=== PATIENT | female | born 1965 | race Caucasian/White ===

== ENCOUNTER 2024-09-02 11:35 | Inpatient (IN) | payer SELFPAY ==
[2024-09-02] VITALS (9 sets, daily range): BP systolic 134–177; BP diastolic 66–102; BMI 38.2
--- NOTE | 2024-09-02 06:25 | ED.GENMED ---
History of Present Illness
General
Chief Complaint: Breathing Problem
Time Seen by Provider: 09/02/24 06:24
History of Present Illness
History of Present Illness:
TIME OF INITIAL ENCOUNTER: 6:20 AM
HPI: Patient presents with shortness of breath over the last couple of days. It worsened this morning. Last week she has 'a cold'. This is associated with some degree of bipedal edema. She denies fevers other than when she had the cold. She
stopped smoking about 2-1/2 years ago.
EXAM:
GENERAL: The patient appears tachypneic and in mild to moderate respiratory distress, room air sat was 87%
HEENT: Moist oral mucosa
CARDIOVASCULAR: No murmurs, normal heart rate, regular rhythm, No chest wall tenderness
PULMONARY: Mild to moderate respiratory distress, breath sounds are decreased with bilateral wheeze
ABDOMEN: Soft with no peritoneal signs, no tenderness
NEUROLOGIC: Excellent strength all extremities, no coordination deficits
PSYCHIATRIC: Appropriate mental status, normal insight and judgement
EXTREMITIES: Nontender, mild lower extremity edema, moves all extremities equally
SKIN: No rash, no lesions
NUMBER AND COMPLEXITY OF PROBLEMS ADDRESSED AT THE ENCOUNTER
� Chronic conditions affecting care: Denies any history of CHF or COPD
� Acute Exacerbation and/or Progression of Chronic Illness: This is an acute problem
� Differential Diagnosis includes: Undiagnosed COPD/emphysema, viral syndrome/reactive airway disease, CHF, given the abnormality heard on lung exam doubt PE
AMOUNT AND/OR COMPLEXITY OF DATA TO BE REVIEWED AND ANALYZED
� I performed an independent evaluation of and my interpretation is:
EKG:
CT:
X-rays: Chest x-ray shows mild hyperaeration with flattening of the right hemidiaphragm
Laboratory Studies: CBC unremarkable however MCV is over 100, mild hyperglycemia noted however chemistries unremarkable, troponin and BNP unremarkable
Other:
� Review of other/old records: No old records available for review in [facility]
� Clinical information was obtained by an independent historian: I spoke to family at bedside
� Prescriptions/Medications Considered but not given:
� Further testing considered but not performed:
RISK OF COMPLICATIONS AND/OR MORBIDITY OR MORTALITY OF PATIENT MANAGEMENT
� Social determinants of health affecting care: Lives at home
� Discussion with other providers: Hospitalist for admission
� Escalation of care including admission/observation vs risk of discharge considered: Upon arrival, the patient appears to be in moderate respiratory distress and had conversational dyspnea. I have given patient IV steroids and
DuoNebs.
ANY OTHER UPDATES:
On reassessment prior to admission, patient overall feels improved after DuoNebs and steroids have been started
Phy Exam
Physical Exam
Physical Exam:
See HPI
Scores
Heart Failure Risk
Heart Failure Risk Score: Not Applicable
Course
Orders/Labs/Results
Orders:
Orders
09/02/24 06:24
Ipratropium/Albuterol Sulfate [Duoneb] 3 ml INH R NOW ONE
09/02/24 06:25
Ipratropium/Albuterol Sulfate [Duoneb] 3 ml INH R NOW STA
MethylPREDNISolone PF [Solu-Medrol Pf] 125 mg IV NOW STA
09/02/24 06:27
CR Chest Portable - 1 View Urgent
Comment:
Reason For Exam: sob wheeze
Reason Study Needs to be Portable: Patient Unstable
09/02/24 06:28
Complete Blood Count/With Diff Urgent
Comprehensive Metabolic Panel Urgent
Magnesium Urgent
NT-proBNP Urgent
Troponin I Urgent
09/02/24 07:00
COVID-19 Antigen Urgent
Source: Nasal Swab
Influenza A+B Rapid Molecular Urgent
JODY Source: Nasal Swab
Specimen Description:
09/02/24 Lunch
Regular
At Your Request: Full Participation
09/02/24 10:28
Admit/Transfer Patient As Directed
Co-Sign Provider:
Level of Care: Inpatient admission
Assign to:: Medical/Surgical
Physician / Group: Sandhya Wallace - hospitalists
Diagnosis: acute COPD, wheezing, hypoxia
Reason for Hospitalization: acute COPD, wheezing, hypoxia - IV steroids
Expected length of stay greater than two midnights?: Yes
ELOS- Estimated Length of Stay in days: 3
I certify the patient meets the requirements for IP care: Yes
PRN Pain Medication Management As Directed
May give lesser potent ordered pain med per pt: Yes
preference::
Protocol:: Medication orders for pain may be administered in a
manner that supports deferring to patient preference
when the pt is:
- Requesting an ordered lesser potent pain medication.
Least to most potent pain medications are defined
as: acetaminophen < NSAID < tramadol < opioids
(morphine, oxycodone, hydromorphone).
- Requesting a lesser dose of the same medication IF
ORDERED.
- Requesting a less intrusive route of administration
if both routes are prescribed by the provider (PO <
IV).
09/02/24 10:29
Code Status As Directed
Resuscitation Status: Full Code
09/02/24 10:30
PULMONARY CONSULT Routine
Consulting Provider: Tae Brantley
Was physician already notified: Yes
09/02/24 10:33
Acapella [Rx Pep / Acapela] [RESP] Routine
Rx Incentive Spirometry [RESP] Routine
Frequency: q1h while awake
09/02/24 12:00
Ipratropium/Albuterol Sulfate [Duoneb] 3 ml INH R QID
09/02/24 13:20
Acetaminophen [Tylenol] 650 mg PO Q4HPRN PRN
Bisacodyl [Dulcolax] 10 mg RECTAL [id number] PRN
Docusate W/Senna [Senokot-S] 1 tablet PO BIDPRN PRN
Ipratropium/Albuterol Sulfate [Duoneb] 3 ml INH R Q4HPRN PRN
Ondansetron Injectable [Zofran] 4 mg IV Q6HPRN PRN
Polyethylene Glycol Powder [Miralax] 17 grams PO DAILYPRN PRN
09/02/24 13:20
Activity As Directed
Activity Level: As Tolerated
Vital Signs As Directed
Frequency: Per unit guidelines
DX Deep Vein Thrombosis Video Routine
09/02/24 18:00
Enoxaparin Sodium [Lovenox] 40 mg SC QPM
09/03/24 06:00
Basic Metabolic Panel IN AM
Complete Blood Count/No Diff IN AM
Abnormal Lab Results
09/02/24
06:28
MCV 100.7 H fL
(81.0-99.0)
MCH 33.9 H pg
(27.0-31.0)
MPV 12.4 H fL
(7.4-10.4)
Absolute Eos (auto) 1.2 H 10^3/uL
(0-0.7)
Eosinophils % 17.0 H %
(0-6)
Glucose 152 H mg/dl
(70-99)
ALT 41 H U/L
(0-35)
09/02/24 06:28
09/02/24 06:28
Vital Signs
Initial and Last Documented VS:
Initial Vital Signs
Pulse Resp Pulse Ox
82 24 87
09/02/24 06:21 09/02/24 06:21 09/02/24 06:21
Last Documented Vital Signs
Pulse Resp BP Pulse Ox
92 28 147/71 93
09/02/24 11:51 09/02/24 11:51 09/02/24 11:51 09/02/24 12:10
*Critical Care Note
Total Time (30-74mins, 75-104mins- exclusive of procedures): Not Applicable
ED Attending Note
-
Portions of this chart may have been created with voice recognition software.� Occasional wrong word or��sound alike� substitutions may have occurred due to the inherent limitations of voice recognition software.
Discharge Plan
Departure
Patient Disposition: Admit
Date of Disposition: 09/02/24
Time of Disposition: 08:27
Presentation/result/management discussed w/ accepting MD/DO: Hospitalist
Discharge Problem:
RAD (reactive airway disease) with wheezing
Interventions
Interventions:
*Risk Screen - Suicide Last Done: 09/02/24 06:21
*General Assessment Last Done: 09/02/24 06:41
*Neglect/Abuse Screening Last Done: 09/02/24 06:21
ED- Fall Risk Assessment Last Done: 09/02/24 08:03
*ED COVID-19 Vaccine History Last Done: 09/02/24 06:41
*Nursing Disposition Last Done: 09/02/24 12:41
ED- Cardiac Assessment Last Done: 09/02/24 07:09
ED- Pulmonary Assessment Last Done: 09/02/24 07:09
Discharge Date and Time
Discharge Date/Time: 09/02/24 12:50
[2024-09-02] MEDS: DUONEB 3 ML INH ×5 (06:29→21:01)
[2024-09-02] MEDS: SOLU-MEDROL PF 125 MG IV (06:30)
[2024-09-02 06:47] LABS: % Basophils 0.9 % (0-2); % Immature Granulocytes 0.3 % (0-0.5); % Lymphocytes 26.6 % (20.5-51.1); % Monocytes 8.4 % (1.7-9.3); % Neutrophils 46.8 % (42.2-75.2); Absolute Basophils 0.1 10^3/uL (0-0.2); Absolute Eosinophils 1.2 10^3/uL (0-0.7); Absolute Lymphocytes 1.8 10^3/uL (1.2-3.4); Absolute Monocytes 0.6 10^3/uL (0.1-0.6); Absolute Neutrophils 3.2 10^3/uL (1.4-6.5); Hematocrit 42.8 % (37.0-47.0); Hemoglobin 14.4 g/dL (12.0-16.0); Mean Corp Hgb Conc. 33.6 g/dL (33.0-37.0); Mean Corpuscular Hgb 33.9 pg (27.0-31.0); Mean Corpuscular Volume 100.7 fL (81.0-99.0); Mean Platelet Volume 12.4 fL (7.4-10.4); Nucleated Red Blood Cells % 0 %; Platelet Count 262 10^3/uL (130-400); Red Blood Cell Count 4.25 10^6/uL (4.20-5.40); Red Cell Dist. Width 11.5 % (11.5-14.5); White Blood Cell Count 6.9 10^3/uL (4.8-10.8)
[2024-09-02 07:01] LABS: ALT (SGPT) 41 U/L (0-35); AST (SGOT) 31 U/L (14-36); Albumin 4.5 g/dl (3.5-5.0); Alkaline Phosphatase 88 U/L (38-126); Blood Urea Nitrogen 12 mg/dl (7-17); Calcium 9.1 mg/dl (8.4-10.2); Carbon Dioxide 28 mmol/L (22-30); Chloride 104 mmol/L (98-107); Estimated Creatinine Clearance 88 ml/min; Glucose 152 mg/dl (70-99); Magnesium 1.8 mg/dl (1.6-2.3); Potassium 4.2 mmol/L (3.5-5.1); Sodium 141 mmol/L (135-145); Total Bilirubin 0.3 mg/dl (0.2-1.3); Total Protein 7.4 g/dl (6.3-8.2); eGFR > 60.00
[2024-09-02 07:10] LABS: NT-proBNP 44.7 pg/ml; Troponin I < 0.012 ng/ml
[2024-09-02 07:32] LABS: COVID-19 Antigen Negative (Negative)
--- NOTE | 2024-09-02 10:20 | HPS.HSE ---
Family Physician
-
Family Physician: * NONE
Chief Complaint
-
SOB/RUSHING
History of Present Illness
59 y/o F, former smoker (1/2 ppd, x 30 years, quit 2.5 years ago), presenting to ER for SOB and RUSHING. Patient reports a viral illness 1 week ago with a fever for 24 hours. Fever came upon on Monday of last week and by Monday, she was feeling
better. She was in her usual state of health until yesterday she felt SOB with light activity such as walking the dog. She took the rest of the day lightly and rested. This morning, she felt a bit lightheaded when waking up but otherwise felt ok.
upon heading to bathroom, she felt significantly SOB with wheezing sensation, prompting ER evaluation. She denies any fever/chills currently, no chest pain, no GI complaints. [place] some bilateral ankle swelling which she attributes to being on her
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 No sick contacts or travel. Recently moved to [place] from [place].
in ER, was placed on 3L NC and given nebs/IV steroids. Patient admitted for further evaluation/treatment.
Medical History
Past Medical History
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
Past Surgical History: Reports Cholecystectomy and Other (hernia repair)
Social History
Tobacco: Former Smoker
Alcohol: Occasional
Drug: Marijuana (oral edibles)
Personal: Single
Living: With Family
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
Family History
Family History: Not pertinent
Allergies / Home Medications
Allergies reflects when Allergies were last updated in [facility].
Home Medications with original date entered in [facility]
Allergy/Medication List:
Allergies
Allergy/AdvReac Type Severity Reaction Status Date / Time
No Known Allergies Allergy Verified 09/02/24 06:25
Home Medications
Sertraline 1.5 tab PO HSPRN PRN SLEEP 09/02/24
Review of Systems
-
A 12 point ROS was completed and negative except as noted: Yes
Respiratory: Reports See HPI
Cardiac: Reports No Symptoms
Abdomen/GI: Reports No Symptoms
: Reports No Symptoms
Musculoskeletal: Reports No Symptoms
Skin: Reports No Symptoms
Neurological: Reports No Symptoms
Endocrine: Reports No Symptoms
Physical Exam
Vital Signs
Vital Signs
Pulse Resp BP Pulse Ox
77 20 149/102 93
09/02/24 09:45 09/02/24 09:45 09/02/24 09:00 09/02/24 09:45
Physical Exam
General: Respiratory Distress and Obese
HEENT: NormoCephalic and Anicteric
Respiratory: Wheezes and Decreased Breath Sounds
Cardiac: S1/S2 and Regular Rhythm
GI: Soft and Non Tender
Musculoskeletal: No Edema
Neuro: AO x 3
Psych: Calm
Laboratory Results
-
09/02/24 06:28
09/02/24 06:28
Laboratory Results
Total Bilirubin 0.3 mg/dl (0.2-1.3) 09/02/24 06:28
AST 31 U/L (14-36) 09/02/24 06:28
ALT 41 U/L (0-35) H 09/02/24 06:28
Alkaline Phosphatase 88 U/L (38-126) 09/02/24 06:28
Troponin I < 0.012 ng/ml 09/02/24 06:28
Data Reviewed
-
Diagnostic Radiology: Image Personally Visualized and interpreted (hyperaerated lung drew, c/w COPD. no focal consolidations or effusions)
Lab Data: Labs Reviewed by me
Impression/Plan
-
Assessment:
Acute SOB/Wheezing, most likely undiagnosed emphysema/COPD with exacerbation vs reactive airway disease from recent viral illness
Acute hypoxic respiratory insufficiency on 3L NC
- CXR: hyperaeration of lung drew, flattened diaphragms, no consolidation/effusions. c/w COPD.
- admit M/S floor
- QID and prn Nebs
- IV steroids started
- wean O2 as able
- IS/Acapella
- if febrile, check sputum and consider empiric Abx. COVID/Flu negative
- Pulm consult with also plan for OP F/u with pulm for chronic management/PFTs
Former smoker
- 1/2 ppd x 30 years
- quit 2.5 years ago
DVT ppx: Lovenox
Code: Full
--- NOTE | 2024-09-02 10:39 | CON.PUL ---
Consultation
Consultation Request
Date/Time Consultation Requested: 09/02/2024-10 40 5 AM
Date/Time Consultation Performed: 09/02/2024-11 AM
Requesting Provider: Hospitalist
Performing Provider: Dr. Brantley
Reason for Consultation: Shortness of breath
Medical History
-
Chief Complaint: Shortness of breath
History of Present Illness:
59-year-old female recently moved to [place] from [place] with a 89-05-mynu-year smoking history quit 2.5 years ago presented with increasing shortness of breath triggered by recent viral illness placed on supplemental oxygen and pulmonary consulted for
shortness of breath 09/02/2024.. She recently moved from [place]. She does not have a local manager patient. She quit smoking almost 3 years ago. She's never been told she had emphysema or asthma. She does have a history of COPD in the family.
She does not use inhalers. An outpatient. She does not see a manager patient. She developed increasing shortness of breath, wheezing, chest congestion, nonproductive cough, dyspnea on exertion and offered no complaints of chest pain, pleurisy,
abdominal pain, nausea, increased leg swelling or weakness.
Past Medical History
Past Medical History: None (TB age 13. Former smoker-less than 61-[id number]-zkcg quit 2020. Cholecystectomy. Hernia repair. GREGORY suspected.)
Social History
Tobacco: Former Smoker (28-43-wman-year quit 2.5 years ago)
Alcohol: Occasional
Drug: Marijuana (Edibles)
Personal: Single
Occupational Exposures: No known asbestos exposure
Environmental Exposures: No known tuberculosis exposure
Family History
Family History: Reviewed & Not Pertinent and Other (. Daughter-narcolepsy. Brother-COPD. Multiple family members-GREGORY.)
Allergies / Home Medications
Allergies
Allergy/AdvReac Type Severity Reaction Status Date / Time
No Known Allergies Allergy Verified 09/02/24 06:25
Home Medications
�Medication �Instructions �Recorded �Confirmed �Last Taken �Type
Sertraline 1.5 tab PO HSPRN PRN SLEEP 09/02/24 09/02/24 08/31/24 History
Review of Systems
-
Unable to Obtain full review of systems at this time due to: Other (Per HPI)
Vitals / Labs / Diagnostic Testing
Vital Signs
Pulse Resp BP Pulse Ox
77 20 149/102 93
09/02/24 09:45 09/02/24 09:45 09/02/24 09:00 09/02/24 09:45
Lab Data
09/02/24 06:28
09/02/24 06:28
Microbiology
09/02/24 07:00 Nasal Swab Influenza Types A & B (SALAZAR) - Final
Negative for Influenza A & B, NAAT
Negative results must be combined with clinical observations
and patient history.
Nucleic Acid Amplification test (NAAT)performed on the
[employer] platform.
Diagnostic Testing:
Physical Exam
-
Exam:
Well-nourished and well-developed in no apparent distress
HEENT-atraumatic, normocephalic
Neck-supple, no JVD, no bruit
Heart-regular rate and rhythm-no murmurs, rubs or gallops
Chest with diminished breath sounds, prolonged expiratory time, expiratory wheezes
Back without tenderness
Abdomen-soft, nontender, nondistended, no hepatosplenomegaly
Extremities-no cyanosis, clubbing, edema and good peripheral pulses
Integument-intact, no rashes, lesions or ecchymosis
Neurology-alert and oriented, nonfocal motor and sensory exam
Assessment
-
59-year-old female recently moved to [place] from [place] with a 89-94-sqhr-year smoking history quit 2.5 years ago presented with increasing shortness of breath triggered by recent viral illness placed on supplemental oxygen and pulmonary consulted for
shortness of breath 09/02/2024.
Suspected COPD with acute exacerbation
Recent URI/viral illness
Former smoker
Hyperglycemia
Conditions present prior to admission:
TB age 13.
Obstructive sleep apnea strongly suspected
Former smoker-less than [id number] quit 2020
Family history COPD-brother.
Family history of obstructive sleep apnea-multiple family members.
Family history narcolepsy-daughter
Cholecystectomy.
Hernia repair.
Plan
Patient requires admission for COPD exacerbation and respiratory failure
Supplemental oxygen as needed-Assess discharge supplemental oxygen needs
Consider ABG if declines
BiPAP if needed
Duonebs
Pulmicort nebulizers
Mucolytic's
Decadron or methylprednisolone
Incentive spirometry
Acapella
Consider vest if difficulties mobilizing secretions
Consider chest physiotherapy if difficulties mobilizing secretions
Check cultures
Empiric antibiotics if acute bacterial bronchitis or acute bacterial lower respiratory tree infection is suspected
Consider Procalcitonin level if unsure whether acute respiratory tract bacterial infection exists-caveat may be negative with atypical infections
Monitor blood sugars bit elevated on steroids
Insulin supplementation as needed
Smoking cessation counseling ongoing-Quit 3 years ago
DVT prophylaxis recommended
GI prophylaxis recommended if on steroids for prolonged period
Early nutrition
Early mobilization
Reviewed with ED nursing, respiratory therapy, and primary team , as well as family member at the bedside
Outpatient pulmonary/Sleep disorders [id number], 6-minute walk test, etc.-also needs polysomnogram and treatment for undoubted GREGORY yet to be diagnosed
Diagnostic data:
Chest x-ray 09/02/2024-no pneumonia, CHF or pleural effusion
Data Reviewed
-
EKG: Report reviewed by me
Radiology: Image personally visualized and interpreted and Report reviewed by me
Medical Tests (Nuc Med, Echo etc): Report reviewed by me
Labs: Labs reviewed by me
Old Records: Reviewed
Total Time Spent with Patient (in minutes): 55
--- NOTE | 2024-09-02 14:26 | PTCARENOTE ---
pt admitted to [facility] from ED AOx3, denies pain but endorses anxiety and feeling jittery. education provided surrounding steroid SE and breathing treatments. Pt on 4L via NC inspiratory and expiratory wheeze noted. tachypneic and RUSHING. abd round and
obese, +BSx4 NT. cont b&b. skin CDI trace b/l pedal edema. CB in reach
[2024-09-02] MEDS: SOLU-MEDROL PF 40 MG IV ×2 (14:37→20:27)
[2024-09-02] MEDS: LOVENOX 40 MG SC (18:02)
--- NOTE | 2024-09-02 18:18 | PTCARENOTE ---
pt c/o anxiety, attending contacted, PRN obtained
[2024-09-02] MEDS: ATIVAN 0.5 MG PO (18:33)
[2024-09-02] MEDS: MUCINEX 1200 MG PO (20:27)
[2024-09-03] MEDS: SOLU-MEDROL PF 40 MG IV ×4 (01:22→18:14)
[2024-09-03 05:39] LABS: Hematocrit 38.8 % (37.0-47.0); Hemoglobin 13.1 g/dL (12.0-16.0); Mean Corp Hgb Conc. 33.8 g/dL (33.0-37.0); Mean Corpuscular Hgb 33.9 pg (27.0-31.0); Mean Corpuscular Volume 100.3 fL (81.0-99.0); Mean Platelet Volume 12.9 fL (7.4-10.4); Platelet Count 227 10^3/uL (130-400); Red Blood Cell Count 3.87 10^6/uL (4.20-5.40); Red Cell Dist. Width 11.5 % (11.5-14.5); White Blood Cell Count 13.3 10^3/uL (4.8-10.8)
[2024-09-03 06:01] LABS: Blood Urea Nitrogen 15 mg/dl (7-17); Calcium 9.4 mg/dl (8.4-10.2); Carbon Dioxide 24 mmol/L (22-30); Chloride 102 mmol/L (98-107); Estimated Creatinine Clearance 88 ml/min; Glucose 287 mg/dl (70-99); Potassium 4.4 mmol/L (3.5-5.1); Sodium 137 mmol/L (135-145); eGFR > 60.00
[2024-09-03 07:00] VITALS: BP 124/68
[2024-09-03] MEDS: MUCINEX 1200 MG PO ×2 (08:05→20:01)
[2024-09-03] MEDS: NOVOLOG FLEXPEN-LOW RESISTANCE 2 UNITS SC ×2 (08:21→18:13)
--- NOTE | 2024-09-03 08:23 | W.PN.HOSP.TC ---
Today's Communication/Plan
-
continue current plan of care
home O2 evaluation
Assessment / Plan
Assessment / Plan
Assessment:
Acute SOB/Wheezing, most likely undiagnosed emphysema/COPD with exacerbation vs reactive airway disease from recent viral illness
Acute hypoxic respiratory insufficiency on 3L NC
- CXR: hyperaeration of lung drew, flattened diaphragms, no consolidation/effusions. c/w COPD.
- QID and prn Nebs
- Pulmicort nebs BID
- continue IV solu-Medrol 40mg q6h
- wean O2 as able; on RA currently. Home O2 eval in 24 hours
- IS/Acapella
- if febrile, check sputum and consider empiric Abx. COVID/Flu negative
- Pulm consult with also plan for OP F/u with pulm for chronic management/PFTs
Former smoker
- 1/2 ppd x 30 years
- quit 2.5 years ago
TB age 13
GREGORY suspected - OP sleep study
DVT ppx: Lovenox
Code: Full
Anticipated Discharge: Within 24 hours
Subjective/Interval History
-
Date of Service: September 03, 2024
reports less SOB, less wheezing
ambulated to bathroom, O2 to 90s, recovered to 95% with rest
Objective Data
-
Labs:
Laboratory Results
09/03/24
04:56
WBC 13.3 H
Hgb 13.1
Hct 38.8
Plt Count 227
Sodium 137
Potassium 4.4
Chloride 102
Carbon Dioxide 24
BUN 15
Creatinine 0.8
Glucose 287 H
Calcium 9.4
Vital Signs:
Vital Signs
Temp Pulse Resp BP Pulse Ox
97.9 F 64 18 124/68 94
09/03/24 07:00 09/03/24 07:00 09/03/24 07:00 09/03/24 07:00 09/03/24 08:12
I&O
09/02/24 09/03/24 09/04/24
06:59 06:59 06:59
Intake Total 480 / 480
Balance 480 / 480
Physical Exam
-
General: No Apparent Distress
HEENT: Normocephalic and Atraumatic
Respiratory: Wheezes and Decreased Breath Sounds
Cardiac: Regular Rhythm and S1/S2
GI: Soft and Nontender
Genito-urinary: No Costovertebral Tender
Neuro: AO x 3
Hematologic / Lymphatic: No Lymphadenopathy
Psych: Calm
Data Reviewed
-
Total Time Spent with Patient (in minutes): 44
Labs: Labs Reviewed by me
[2024-09-03 08:39] LABS: Glucose - Point of Care 212 mg/dl (70-99)
[2024-09-03] MEDS: PULMICORT 0.5 MG INH ×2 (08:43→19:35)
[2024-09-03] MEDS: DUONEB 3 ML INH ×4 (08:43→19:35)
--- NOTE | 2024-09-03 09:49 | W.PN.PUL.V3 ---
Today's Communication / Plan
-
Wean oxygen
Increase activity
No change in steroids-hopefully change to prednisone 60 mg with slow taper tomorrow
Continue nebulizers
Outpatient pulmonary/sleep disordered breathing follow-up
Assessment
-
59-year-old female recently moved to [place] from [place] with a 11-94-tnlk-year smoking history quit 2.5 years ago presented with increasing shortness of breath triggered by recent viral illness placed on supplemental oxygen and pulmonary consulted for
shortness of breath 09/02/2024.
Suspected COPD with acute exacerbation
Recent URI/viral illness
Former smoker
Hyperglycemia
Conditions present prior to admission:
TB age 13.
Obstructive sleep apnea strongly suspected
Former smoker-less than [id number] quit 2020
Family history COPD-brother.
Family history of obstructive sleep apnea-multiple family members.
Family history narcolepsy-daughter
Cholecystectomy.
Hernia repair.
Plan
Patient requires admission for COPD exacerbation and respiratory failure
Supplemental oxygen as needed-Assess discharge supplemental oxygen needs
Consider ABG if declines
BiPAP if needed-has not needed
Duonebs
Pulmicort nebulizers
Mucolytic's
Methylprednisolone 40 mg IV every 6 hours-likely can convert to prednisone 60 mg tomorrow with slow taper
Incentive spirometry
Acapella
Cultures reviewed
Unable to produce sputum
Influenza negative
Low threshold for empiric antibiotics if acute bacterial bronchitis or acute bacterial lower respiratory tree infection is suspected
Afebrile and mild leukocytosis probably steroid related
Consider Procalcitonin level if unsure whether acute respiratory tract bacterial infection exists-caveat may be negative with atypical infections
Monitor blood sugars bit elevated on steroids
Insulin supplementation as needed
Smoking cessation counseling ongoing-Quit 3 years ago
DVT prophylaxis recommended
GI prophylaxis recommended if on steroids for prolonged period
Early nutrition
Early mobilization
Reviewed with ED nursing, respiratory therapy, and primary team , as well as family member at the bedside
Outpatient pulmonary/Sleep disorders [id number], 6-minute walk test, etc.-also needs polysomnogram and treatment for undoubted GREGORY yet to be diagnosed
Diagnostic data:
Chest x-ray 09/02/2024-no pneumonia, CHF or pleural effusion
Subjective Data
-
Date of Service:
Date of Service: September 03, 2024
Chief Complaint: Pulmonary Follow Up and Dyspnea Follow Up
Subjective:
Feels a little better, still with some wheezing, no chest pain, chest congestion, productive cough or abdominal pain
Review of Systems
General: Other (Per HPI)
Objective Data
Data Reviewed
Vital Signs / I&O:
Vital Signs
Temp Pulse Resp BP Pulse Ox
97.9 F 81 19 124/68 95
09/03/24 07:00 09/03/24 08:47 09/03/24 08:47 09/03/24 07:00 09/03/24 08:47
Intake and Output
09/02/24 09/03/24 09/04/24
06:59 06:59 06:59
Intake Total 480 / 480
Balance 480 / 480
SaO2: 95
Nasal Cannula flow liters per minute: 4
Physical Exam
General: Respiratory Distress (n) and Comfortable
HEENT: Normocephalic, Anicteric and Moist Mucous Membranes
Cardiovascular: Regular Rhythm
Respiratory: Clear (Diminished breath sounds and prolonged expiratory time), Wheeze (Expiratory), Crackles (n), Rhonchi (n), Non-Labored Respirations, Accessory Resp Muscle Use (n) and Stridor (n)
GI: Soft, Non Distended and Non Tender
Neurology: Awake and No Motor Deficits
Skin: Warm, Good Color, Cyanosis (n), Jaundice (n) and Rash (n)
Labs/Micro/Reports
Lab Data
09/03/24 04:56
09/03/24 04:56
Microbiology
09/02/24 07:00 Nasal Swab Influenza Types A & B (SALAZAR) - Final
Negative for Influenza A & B, NAAT
Negative results must be combined with clinical observations
and patient history.
Nucleic Acid Amplification test (NAAT)performed on the
[employer] platform.
--- NOTE | 2024-09-03 11:38 | CM ---
Patient seen bedside.
Patient new to the area since June.
Patient independent prior to admission without assistive devices.
Patient is .
Patient drives, still works. Insurance will go into effect in October.
Patient Lives alone in a 1 story apartment with 1 step to enter.
PCP information and Advanced directives provided.
Patient does not have a nebulizer and aware one can be purchased if needed from [facility]
Patient prefers [facility] in [place].
Plan: home with possible oxygen and nebulizer needs.
family will transport.
[2024-09-03 12:57] LABS: Glucose - Point of Care 284 mg/dl (70-99)
[2024-09-03] MEDS: NOVOLOG FLEXPEN-LOW RESISTANCE 3 UNITS SC (13:00)
[2024-09-03 15:00] VITALS: BP 155/65
[2024-09-03] MEDS: TYLENOL 650 MG PO (16:12)
[2024-09-03 17:51] LABS: Glucose - Point of Care 206 mg/dl (70-99)
[2024-09-03] MEDS: LOVENOX 40 MG SC (18:12)
[2024-09-03] MEDS: ATIVAN 0.5 MG PO (20:04)
[2024-09-03 21:55] LABS: Glucose - Point of Care 313 mg/dl (70-99)
[2024-09-03 23:09] VITALS: BP 123/75
[2024-09-04] MEDS: SOLU-MEDROL PF 40 MG IV ×2 (01:07→06:14)
[2024-09-04 06:45] LABS: Hematocrit 39.3 % (37.0-47.0); Hemoglobin 13.2 g/dL (12.0-16.0); Mean Corp Hgb Conc. 33.6 g/dL (33.0-37.0); Mean Corpuscular Hgb 33.7 pg (27.0-31.0); Mean Corpuscular Volume 100.3 fL (81.0-99.0); Mean Platelet Volume 12.8 fL (7.4-10.4); Platelet Count 243 10^3/uL (130-400); Red Blood Cell Count 3.92 10^6/uL (4.20-5.40); Red Cell Dist. Width 11.9 % (11.5-14.5)
[2024-09-04] MEDS: DUONEB 3 ML INH ×2 (07:02→11:45)
[2024-09-04] MEDS: PULMICORT 0.5 MG INH (07:02)
[2024-09-04 07:06] LABS: Blood Urea Nitrogen 23 mg/dl (7-17); Calcium 9.6 mg/dl (8.4-10.2); Carbon Dioxide 26 mmol/L (22-30); Chloride 102 mmol/L (98-107); Estimated Creatinine Clearance 100 ml/min; Glucose 268 mg/dl (70-99); Potassium 5.2 mmol/L (3.5-5.1); Sodium 136 mmol/L (135-145); eGFR > 60.00
[2024-09-04 07:18] LABS: Glucose - Point of Care 239 mg/dl (70-99)
[2024-09-04 07:41] VITALS: BP 157/82
[2024-09-04 08:49] LABS: Glycohemoglobin (HgbA1c) 6.7 % (4.0-5.6)
[2024-09-04] MEDS: NOVOLOG FLEXPEN-LOW RESISTANCE 2 UNITS SC (09:01)
[2024-09-04] MEDS: MUCINEX 1200 MG PO (09:06)
[2024-09-04] MEDS: LOKELMA 5 GRAM PO (09:07)
--- NOTE | 2024-09-04 09:50 | W.PN.PUL.V3 ---
Today's Communication / Plan
-
Change methylprednisolone to prednisone-prednisone 50 mg daily for 3 days, then 40 mg daily for 3 days, then 30 mg daily for 3 days, etc.
Obtain home nebulizer-DuoNebs 3 times daily for the next week and then as needed
Inhaler such as Symbicort 160/4.5-2 puffs twice daily
Albuterol rescue inhaler as needed
Mucinex as needed
Outpatient pulmonary/sleep disorders follow-up
Assessment
-
59-year-old female recently moved to [place] from [place] with a 44-50-ngmb-year smoking history quit 2.5 years ago presented with increasing shortness of breath triggered by recent viral illness placed on supplemental oxygen and pulmonary consulted for
shortness of breath 09/02/2024.
Suspected COPD with acute exacerbation
Recent URI/viral illness
Former smoker
Hyperglycemia
Conditions present prior to admission:
TB age 13.
Obstructive sleep apnea strongly suspected
Former smoker-less than [id number] quit 2020
Family history COPD-brother.
Family history of obstructive sleep apnea-multiple family members.
Family history narcolepsy-daughter
Cholecystectomy.
Hernia repair.
Plan
Patient requires admission for COPD exacerbation and respiratory failure
Respiratory condition has improved-less wheezing
Wean supplemental oxygen-now on room air
Rest and exercise oximetry revealed desaturation to 91%-does not need supplemental oxygen at the time of discharge
Duonebs continue
Pulmicort nebulizers
Mucolytic's
Convert methylprednisolone to prednisone 60 mg with slow taper
Incentive spirometry
Acapella
Cultures reviewed
Unable to produce sputum
Influenza negative
Low threshold for empiric antibiotics if acute bacterial bronchitis or acute bacterial lower respiratory tree infection is suspected
Afebrile and mild leukocytosis probably steroid related
Consider Procalcitonin level if unsure whether acute respiratory tract bacterial infection exists-caveat may be negative with atypical infections
Monitor blood sugars bit elevated on steroids
Insulin supplementation as needed
Smoking cessation counseling ongoing-Quit 3 years ago
DVT prophylaxis recommended
GI prophylaxis recommended if on steroids for prolonged period
Early nutrition
Early mobilization
Anxious for discharge-cleared from a pulmonary perspective for proposed discharge-will outline discharge medications
Outpatient pulmonary/Sleep disorders [id number], 6-minute walk test, etc.-also needs polysomnogram and treatment for undoubted GREGORY yet to be diagnosed
Diagnostic data:
Chest x-ray 09/02/2024-no pneumonia, CHF or pleural effusion
Subjective Data
-
Date of Service:
Date of Service: September 04, 2024
Chief Complaint: Pulmonary Follow Up and Dyspnea Follow Up
Subjective:
Feels better, does not desaturate on ambulation, less wheezing, less chest congestion, still some wheezing, no chest pain or abdominal pain
Review of Systems
General: Other (Per HPI)
Objective Data
Data Reviewed
Vital Signs / I&O:
Vital Signs
Temp Pulse Resp BP Pulse Ox
97.3 F 65 18 157/82 96
09/04/24 07:41 09/04/24 07:41 09/04/24 07:41 09/04/24 07:41 09/04/24 07:41
Intake and Output
09/03/24 09/04/24 09/05/24
06:59 06:59 06:59
Intake Total 480 / 480
Balance 480 / 480
SaO2: 96
Nasal Cannula flow liters per minute: 4
Physical Exam
General: Respiratory Distress (n) and Comfortable
HEENT: Normocephalic, Anicteric and Moist Mucous Membranes
Cardiovascular: Regular Rhythm
Respiratory: Clear (Diminished breath sounds and prolonged expiratory time), Wheeze (Expiratory), Crackles (n), Rhonchi (n), Non-Labored Respirations, Accessory Resp Muscle Use (n) and Stridor (n)
GI: Soft, Non Distended and Non Tender
Neurology: Awake and No Motor Deficits
Skin: Warm, Good Color, Cyanosis (n), Jaundice (n) and Rash (n)
Labs/Micro/Reports
Lab Data
09/04/24 06:01
09/04/24 06:01
Microbiology
09/02/24 07:00 Nasal Swab Influenza Types A & B (SALAZAR) - Final
Negative for Influenza A & B, NAAT
Negative results must be combined with clinical observations
and patient history.
Nucleic Acid Amplification test (NAAT)performed on the
[employer] platform.
[2024-09-04] MEDS: DELTASONE 50 MG PO (10:45)
--- NOTE | 2024-09-04 11:50 | W.PN.HOSP.TC ---
Today's Communication/Plan
-
dc to home
Assessment / Plan
Assessment / Plan
Assessment:
Acute SOB/Wheezing, most likely undiagnosed emphysema/COPD with exacerbation vs reactive airway disease from recent viral illness
Acute hypoxic respiratory insufficiency on 3L NC
- CXR: hyperaeration of lung drew, flattened diaphragms, no consolidation/effusions. c/w COPD.
- dc with script for home neb machine and Duonebs QID x 1 week, then QIDPRN after
- dc on steroid taper per pulm (prednisone 50 mg daily for 3 days, then 40 mg daily for 3 days, then 30 mg daily for 3 days, etc.)
- passed home O2 evaluation
- Symbicort 160/4.5-2 puffs twice daily or similar
- Albuterol rescure inhaler prn
- Mucinex prn
- IS/Acapella
- OP F/u with pulm for chronic management/PFTs
Former smoker
- 1/2 ppd x 30 years
- quit 2.5 years ago
TB age 13
GREGORY suspected - OP sleep study
DVT ppx: Lovenox
Code: Full
More than 30 minutes spent in discharge including
Final examination of the patient
Summarizing hospital stay
Instructions for continuing care to all relevant caregivers
Preparation of discharge records, prescriptions, and referral forms
Total time spent (in minutes): 41
Anticipated Discharge: Today
Subjective/Interval History
-
Date of Service: September 04, 2024
denies any new complaints
less wheeze and cough
no desats on ambulation
Objective Data
-
Labs:
Laboratory Results
09/04/24
06:01
WBC 15.0 H
Hgb 13.2
Hct 39.3
Plt Count 243
Sodium 136
Potassium 5.2 H
Chloride 102
Carbon Dioxide 26
BUN 23 H
Creatinine 0.7
Glucose 268 H
Calcium 9.6
Vital Signs:
Vital Signs
Temp Pulse Resp BP Pulse Ox
97.3 F 74 16 157/82 96
09/04/24 07:41 09/04/24 11:46 09/04/24 11:46 09/04/24 07:41 09/04/24 11:46
I&O
09/03/24 09/04/24 09/05/24
06:59 06:59 06:59
Intake Total 480 / 480 300 / 300
Balance 480 / 480 300 / 300
Physical Exam
-
General: No Apparent Distress
HEENT: Normocephalic and Atraumatic
Respiratory: Wheezes (faint)
Cardiac: Regular Rhythm and S1/S2
GI: Soft and Nontender
Genito-urinary: No Costovertebral Tender
Neuro: AO x 3
Psych: Calm
Data Reviewed
-
Total Time Spent with Patient (in minutes): 43
Labs: Labs Reviewed by me
--- NOTE | 2024-09-04 12:01 | W.DS.TRANS ---
DC Summary - Assistant Media Planner
-
Discharge Instructions:
Discharge Diagnosis/Procedures COPD with exacerbation
Diet Regular
Activity As tolerated
Bathing Restrictions None
Instructions:
Stand-Alone Forms:
Changes to Home Medications: No
Discharge Medications:
DC Medications w/original date entered in [employer]
Sertraline 1.5 tab PO HSPRN PRN SLEEP 09/02/24
budesonide-formoterol HFA 160 mcg-4.5 mcg/actuation aerosol inhaler (Breyna) 2 puff inhalation BID #10.2 grams 09/04/24
guaifenesin 600 mg tablet, extended release 12 hr 1,200 mg (2 x 600 mg) PO Q12 #20 tabs 09/04/24
ipratropium 0.5 mg-albuterol 3 mg (2.5 mg base)/3 mL nebulization soln 3 ml inhalation R QID #90 mL 09/04/24
prednisone 10 mg tablet 10 mg PO DIRECTED #45 tabs 09/04/24
Home Medication Changes
Pending Results: No
Total time spent discharging patient (in min): 41
--- NOTE | 2024-09-04 12:04 | CM ---
Patient for d/c home today.
Script for nebulizer.
Plan: home no needs.
[2024-09-04] MEDS: AFLURIA (36 mos+) 2024-2025 FORMULA 0.5 ML IM (13:33)
[2024-09-04] MEDS: NOVOLOG FLEXPEN-LOW RESISTANCE 3 UNITS SC (13:35)
[2024-09-04 13:45] LABS: Glucose - Point of Care 257 mg/dl (70-99)
[2024-09-04 13:53] VITALS: BP 143/65
--- NOTE | 2024-09-04 14:49 | PTCARENOTE ---
Discharge order placed and discharge instructions reviewed with patient. Paper script for nebulizer machine given. Coupons for prescribed medications given. (R) AC #20 removed. No further questions. Staff escorted patient by wheelchair to daughters
car.
== END 2024-09-04 14:54 | disposition home or self-care (01) | DRG 192 ==
LOC: 1 ACUTE 11:35
PROVIDERS: ADMITTING PHYSICIAN Internal Medicine; CONSULT PHYSICIAN Internal Medicine Critical Care Medicine; EMERGENCY PHYSICIAN Emergency Medicine
PROC: 3E02340 Introduction of Influenza Vaccine into Muscle, Percutaneous Approach (ICD-10-PCS; 2024-09-04)
DX: J44.1 Chronic obstructive pulmonary disease with (acute) exacerbation (principal); G47.33 Obstructive sleep apnea (adult) (pediatric); R09.02 Hypoxemia; R06.89 Other abnormalities of breathing; Z82.5 Family history of asthma and other chronic lower respiratory diseases; Z86.11 Personal history of tuberculosis; Z87.891 Personal history of nicotine dependence; Z11.52 Encounter for screening for COVID-19; Z23 Encounter for immunization
CPT/HCPCS: 71045; 80048; 80053; 82962; 83036; 83735; 83880; 84484; 85025; 85027; 87502; 87811; 90686; 94640; 96374; 99285; G0008

== ENCOUNTER 2024-12-18 12:07 | Emergency (ER) | payer SELFPAY ==
[2024-12-18 12:09] VITALS: BP 136/80
--- NOTE | 2024-12-18 13:02 | ED.MUSCINJ ---
HPI-Injury
General
Chief Complaint: Musculo-Skeletal Complaint
Source: patient
Exam Limitations: none
Time Seen by Provider: 12/18/24 12:50
Nursing documentation reviewed up to this point in time: agreed with
History of Present Illness-Injury
Is this injury a work related problem?: No
Is pt an associate of [facility]/[place]?: No
Initial Injury comments:
59 female right lower extremity pain kicked a curb earlier this morning pain in her proximal right fibula her ankle and her right toe trouble ambulating no head strike no neck pain no syncope has COPD on inhaler but no other medical issues
Past History
Past History
ED Past Medical History: COPD
Social History
Tobacco: Non-smoker
Alcohol: None
Drug: None
Personal:
Living: with family
Employment: Employed
Review of Systems
Review of Systems
All Other Systems: Not applicable
Musculoskeletal: Reports joint pain and joint swelling
Phy Exam
Physical Exam
Physical Exam:
Physical Exam
General: no apparent distress, not acutely ill
Neck: No goiter no overt signs head or neck
Heart: Regular
Lungs: no acute respiratory distress.
Neuro: alert and oriented. no focal neurological deficits
Skin: no rash
Psychiatric: well kept. interactive and cooperative
Extremities: Minimal tenderness tip of the right toe minimal bimalleolar tenderness on the right minimal to moderate fibular head tenderness the right
Injury Course
Orders/Labs/Results
Orders:
Orders
12/18/24 12:12
Ankle, Right 3 view CR [CR Ankle - Right Min 3 Views *] Urgent
Comment:
Reason For Exam: pain, injury
Foot, Right 3 View [CR Foot - Right Min 3 Views] Urgent
Comment:
Reason For Exam: pain, injury
12/18/24 12:59
Air Splint Left-Treatment ONCE
Crutches-Treatment ONCE
Oxycodone/Acetaminophen [Percocet 5/325] 1 tablet PO NOW STA
12/18/24 13:01
Tib/Fib, Right 2 View [CR Leg Tibia/fibula Right 2 Vw] Urgent
Comment:
Reason For Exam: fib pain
Procedures
Splint Check
Splint checked by provider?: No
Splinting/Sling Placement
Right Ankle:
Procedure completed by: rn
Pre-splint extermity exam: neurovascular intact
Type of splint: aircast
Splint checked by provider?: No
MDM/Problems Addressed
Differential Diagnosis Includes:
Fracture strain contusion
MDM/Problems Addressed:
Lower extremity
*Critical Care Note
Total Time (30-74mins, 75-104mins- exclusive of procedures): Not Applicable
Update Note
Update Note:
Update isolated right lower extremity injury ankle and foot x-ray left negative does have some proximal fibula pain will check an x-ray of the tib-fib
Update positive fibula for x-ray, placed in a tall boot crutches follow-up orthopedics
ED Attending Note
-
Portions of this chart may have been created with voice recognition software.� Occasional wrong word or��sound alike� substitutions may have occurred due to the inherent limitations of voice recognition software.
Discharge Plan
Departure
Patient Disposition: Home (Routine Discharge)
Date of Disposition: 12/18/24
Time of Disposition: 14:20
Patient with high blood pressure during this ER visit?: No
Condition: Good
Discharge Problem:
Closed fibular fracture
Instructions: Lower leg fracture, Ibuprofen, Splint Care
Prescriptions:
New
ibuprofen 600 mg tablet
600 mg PO Q8H PRN (Reason: Pain) Qty: 20 0RF
oxycodone-acetaminophen [Percocet] 5-325 mg tablet
1 tab PO Q6HPRN PRN (Reason: pain) Qty: 10 0RF
No Action
Sertraline
1.5 tab PO HSPRN PRN (Reason: SLEEP)
prednisone 10 mg tablet
10 mg PO DIRECTED Qty: 45 0RF
Rx Instructions:
50mg x 3 days, 40mg x 3 days, 30mg x 3 days, 20mg x 3 days, 10mg x 3 days
ipratropium-albuterol 0.5 mg-3 mg(2.5 mg base)/3 mL Solution For Nebulization
3 ml inhalation R QID Qty: 90 0RF
guaifenesin 600 mg Tablet Extended Release 12hr
1,200 mg PO Q12 Qty: 20 0RF
budesonide-formoterol [Breyna] 160-4.5 mcg/actuation HFA aerosol inhaler
2 puff inhalation BID Qty: 10.2 0RF
Proair Digihaler 90 mcg/actuation aero powdr breath act w/sensor
90 mcg inhalation Q6H PRN (Reason: shortness of breath or wheezing) Qty: 1 0RF
Referrals:
NONE,* [Family Provider] -
Karthik Chew MD [Active] - Next open appointment
Interventions
Interventions:
*Risk Screen - Suicide Last Done: 12/18/24 12:09
*General Assessment Last Done: 12/18/24 12:09
ED-Musculoskeletal Assessment Last Done: 12/18/24 12:15
Discharge Date and Time
Print Language: MAURITIAN
[2024-12-18] MEDS: PERCOCET 5/325 1 TABLET PO (13:14)
--- NOTE | 2024-12-18 14:26 | EDRN ---
Air splint removed and tall ortho boot applied as per verbal order Dr Tellez.
== END 2024-12-18 14:53 | disposition home or self-care (01) ==
LOC: EMR 12:07
PROVIDERS: EMERGENCY PHYSICIAN Emergency Medicine
DX: S82.831A Other fracture of upper and lower end of right fibula, initial encounter for closed fracture (principal); W22.09XA Striking against other stationary object, initial encounter; J44.9 Chronic obstructive pulmonary disease, unspecified
CPT/HCPCS: 29515; 99283; 73590; 73610; 73630